=== PATIENT | female | born 1985 | race Two or more races ===

== ENCOUNTER 2024-05-19 23:44 | Emergency (ER) | payer OTHER, MEDICAID, SELFPAY ==
[2024-05-19 23:45] VITALS: BMI 39.6
[2024-05-20 00:38] VITALS: BP 108/74; PULSE 98; RESP 20; TEMP 37.2; O2SAT 98
[2024-05-20] MEDS: ONDANSETRON ODT 4 MG TABRAP PO (00:59)
--- NOTE | 2024-05-20 01:09 | EDNOTE_ITS ---
Nausea/Vomit./Diarrhea-RME/HPI General Chief complaint: Abdominal Pain Stated complaint: ABD PAIN Time Seen by Provider: 05/20/24 00:48 Arrival date/time: 05/19/24 23:44 39F with history of cholecystectomy presents to ED with 1 day of N/V, gen ab pain/cramping, and non-bloody diarrhea. Patient was at [facility] earlier today but eloped because it was taking too long. Limitations: no limitations Related Data Previous Rx's ?Medication ?Instructions ?Recorded ondansetron 4 mg disintegrating 4 mg PO Q8H PRN nausea and 05/20/24 tablet vomiting #30 tabs Allergies Allergy/AdvReac Type Severity Reaction Status Date / Time aspirin Allergy Verified 05/19/24 23:47 Penicillins Allergy Verified 05/19/24 23:48 Review of Systems Review of Systems Systems Reviewed: All systems reviewed, normal except as documented Constitutional Constitutional: Reports system reviewed and no additional complaints, except as documented, Denies fever(s) and Denies headache(s) ENT Ears, Nose, Mouth, and Throat: Denies disequilibrium and Denies headache(s) Cardiovascular Cardiovascular: Reports system reviewed and no additional complaints, except as documented, Denies chest pain and Denies dyspnea Respiratory Respiratory: Reports system reviewed and no additional complaints, except as documented, Denies cough and Denies dyspnea Gastrointestinal Gastrointestinal: Reports system reviewed and no additional complaints, except as documented, Reports as per HPI, Reports abdominal pain, Reports diarrhea, Reports nausea and Reports vomiting Neurologic Neurologic: Reports system reviewed and no additional complaints, except as d ocumented, Denies confusion, Denies disequilibrium and Denies headache(s) Psychiatric Psychiatric: Denies confusion Past Medical History Social History SMOKING STATUS: Never smoker ED Exam General Limitations: Present no limitations General appearance: Present alert and in no apparent distress Head Head exam: Present atraumatic Eye Eye exam: Present normal appearance, PERRL and EOMI ENT ENT exam: Present normal exam, normal oropharynx and mucous membranes moist Neck Neck exam: Present normal inspection, full ROM and trachea midline Chest Chest inspection: Present normal inspection and symmetric chest wall rise Respiratory Respiratory exam: Present normal lung sounds bilaterally Cardiovascular Cardiovascular exam: Present regular rate, normal rhythm and normal heart sounds Abdominal Exam Abdominal exam: Present soft, tenderness and normal bowel sounds Abdominal tenderness: Present mild Extremities Exam Extremities exam: Present normal inspection and full ROM Back Exam Back exam: Present normal inspection and full ROM Neurological Exam Neurological exam: Present alert, oriented X3 and CN II-XII intact Psychiatric Psychiatric exam: Present normal affect and normal mood Skin Skin exam: Present warm, dry, intact and normal color Course Quality Measures none Orders Category Date Time Status Acetaminophen Tab [Tylenol ES Tab] Med 05/20/24 01:07 Discontinued 1,000 mg PO X1 ONE Dicyclomine [Bentyl] Med 05/20/24 01:07 Discontinued 10 mg PO X1 ONE Ondansetron Odt [Zofran Odt] Med 05/20/24 00:48 Discontinued 4 mg PO X1 ONE mg Hyd/Al Hyd/Sandi Susp [Maalox Susp] Med 05/20/24 01:07 Discontinued 30 ml PO X1 ONE Vital Signs Vital signs: Vital Signs Temperature 99.0 F 05/20/24 00:38 Pulse Rate 98 05/20/24 00:38 Respiratory Rate 20 05/20/24 00:38 Blood Pressure 108/74 05/20/24 00:38 Pulse Oximetry (%) 98 05/20/24 00:38 Oxygen Delivery Method Room Air 05/20/24 00:38 O2 at 98% on RA and WNLs Nausea/Vomiting/Diarrhea MDM Narrative MDM Narrative:: 39F with history of cholecystectomy presents to ED with 1 day of N/V, gen ab pain/cramping, and non-bloody diarrhea. Patient was at [facility] earlier today but eloped because it was taking too long. Physical exam reveals mild gen ab tenderness. Patient is afebrile, calm, and alert. [facility] results reveals minimal leukocytosis, likely reactive from N/V. CMP unremarkable. Lipase normal. HCG neg. Likely viral gastroenteritis. PO challenged passed. Patient felt better after GI cocktail. Refrigeration Service Technician given. Patient data External records reviewed:: Other (specify) ([place] results) Clinical information provided by:: patient Social determinants that could affect healthcare access:: none Patient has the following chronic illnesses:: none How is presenting disease/condition affected by chronic disease/condition?: no chronic disease Evaluation data The following diagnostics were reviewed and interpreted by me:: other (specify) (none) Lab and/or radiology exams considered but not ordered:: not ordered Interpretation Summary: n/a Medications / Prescriptions Medications / Prescriptions considered but not ordered:: ordered Medication administrations:: Medication Administration History Discontinued Medications Acetaminophen (Acetaminophen 500 Mg Tablet) 1,000 mg PO X1 ONE Stop: 05/20/24 01:08 Last Admin: 05/20/24 01:41 Dose: 1,000 mg Documented By: AMIRA Al Hydrox/Mg Hydrox/Simethicone (Mg Hyd/Al Hyd/Sandi (Maalox Reg) Susp 30 Ml Udc) 30 ml PO X1 ONE Stop: 05/20/24 01:08 Last Admin: 05/20/24 01:41 Dose: 30 ml Documented By: AMIRA Dicyclomine HCl (Dicyclomine 10 Mg Capsule) 10 mg PO X1 ONE Stop: 05/20/24 01:08 Last Admin: 05/20/24 01:41 Dose: 10 mg Documented By: AMIRA Ondansetron HCl (Ondansetron Odt 4 Mg Tabrap) 4 mg PO X1 ONE; Protocol Stop: 05/20/24 00:49 Last Admin: 05/20/24 00:59 Dose: 4 mg Documented By: DB above Consultations Consultation(s) initiated? (list below): No Diagnosis Nausea Differential Diagnosis: traveler's diarrhea, food poisoning, gastroenteritis, clostridium difficile infection, drug-induced nausea and vomiting and dehydration Most likely diagnosis given after review of the tests above:: gastroenteritis Admission Indicated Admission indicated?: not indicated Admission Request Was there a request for admission?: No Disposition Plan Disposition Plan: Discharge Discharge Attestation Discharge Attestation: The patient and all family members were given an opportunity to ask questions and understood the discharge instructions. Discharge instructions specifically effects, indications for sooner follow up or return to the emergency department, and the expected course of current diagnosis. Patient condition: Stable Discharge Plan Plan Patient Disposition: HOME (Self Care) Disposition Comment: STable Prescriptions/Referrals Prescriptions/Med Rec: New ondansetron 4 mg tablet,disintegrating 4 mg PO Q8H PRN (Reason: nausea and vomiting) Qty: 30 0RF Referrals: No Primary/Family,Physician [Primary Care Provider] - In 1 week Problem List Clinical Impression: Gastroenteritis Patient/Caregiver Discharge Instructions Education Materials: ED Diarrhea, Viral (Adult) Additional Instructions: Please follow-up with PCP within 24-48 hours and return immediately if symptoms worsen. Stay hydrated. Print Language: Jamaican Stand Alone Forms: Patient Portal Info Letter MARISABEL/SUKHDEV Supervising Physician MARISABEL/CAR PUSHER Supervising Physician: Dr. Rausch
[2024-05-20] MEDS: MG HYD/AL HYD/SIME (Maalox Reg) SUSP 30 ML UDC PO (01:41)
[2024-05-20] MEDS: ACETAMINOPHEN 500 MG TABLET 1000 MG PO (01:41)
[2024-05-20] MEDS: DICYCLOMINE 10 MG CAPSULE PO (01:41)
== END 2024-05-20 06:34 | disposition home or self-care (01) ==
PROVIDERS: Emergency Provider Emergency Medicine
DX: K52.9 Noninfective gastroenteritis and colitis, unspecified (principal)
CPT/HCPCS: 99282; Q0162; A9270

== ENCOUNTER 2024-08-28 15:11 | Emergency (ER) | payer MEDICAID, SELFPAY ==
[2024-08-28 15:30] VITALS: BP 119/76; PULSE 74; RESP 18; TEMP 37.2; O2SAT 99; BMI 40.6
--- NOTE | 2024-08-28 15:38 | XR_ITS ---
Examination: Complete OB ultrasound, less than 14 weeks, transabdominal Date and time of exam: August 28, 2024 1549 hours INDICATIONS: Vaginal bleeding and right lower abdominal pain beginning 4 days ago Technique: Obstetrical ultrasound images less than 14 weeks performed via transabdominal imaging Findings: Uterus 10.0 cm endometrial stripe 0.5 cm heterogeneous with free fluid No intrauterine gestation Right ovary 3.0 cm arterial flow 14 mm follicular cyst Left ovary 3.4 cm arterial flow 10 mm follicular cyst IMPRESSION: As clinically warranted, recommend transvaginal pelvic sonography follow-up to exclude retained products of conception
--- NOTE | 2024-08-28 15:38 | PD.EDRME ---
Rapid Medical Screening Exam E Arrival date/time: 08/28/24 15:11 39-year-old female presents emergency department with complaints of vaginal bleeding and right lower quadrant abdominal pain. Reports most likely is having a miscarriage. Chief Complaint: Vaginal Bleeding Time Seen by Provider: 08/28/24 15:20 Vital signs: Vital Signs Temperature 98.9 F 08/28/24 15:30 Pulse Rate 74 08/28/24 15:30 Respiratory Rate 18 08/28/24 15:30 Blood Pressure 119/76 08/28/24 15:30 Pulse Oximetry (%) 99 08/28/24 15:30 Oxygen Delivery Method Room Air 08/28/24 15:30
[2024-08-28 15:58] LABS: Basophils # (Auto) 0.1 Thou/mm3 (0.0-0.2); Basophils % (Auto) 1 % (0-2.5); Eosinophils # (Auto) 0.3 Thou/mm3 (0.0-0.5); Eosinophils % (Auto) 3 % (0-10); Hematocrit 36.2 % (36.0-46.0); Hemoglobin 12.5 g/dL (12.0-16.0); Immature Granulocytes % (Auto) 0 % (0-0); Immature Granulocytes Auto 0.02 Thou/mm3 (0.00-0.00); Lymphocytes % (Auto) 40 % (10-50); Mean Corpuscular HGB Conc 34.5 g/dl (31.0-37.0); Mean Corpuscular Hemoglobin 29.4 pg (25.0-35.0); Mean Corpuscular Volume 85 fL (80-100); Monocytes # (Auto) 0.7 Thou/mm3 (0.0-0.8); Monocytes % (Auto) 6 % (0-12); Neutrophils # (Auto) 5.1 Thou/mm3 (1.8-7.7); Neutrophils % (Auto) 50 % (37-80); Nucleated Red Blood Cell % 0 /100 WBC (0); Platelet Count 411 Thou/mm3 (140-440); RDW Standard Deviation 37.3 fL (36.4-46.3); Red Blood Count 4.25 Miln/mm3 (4.00-5.20); White Blood Count 10.2 Thou/mm3 (3.6-11.0)
[2024-08-28 16:17] LABS: Alanine Aminotransferase 12 U/L (10-49); Albumin, Serum 4.1 gm/dL (3.5-5.0); Albumin/Globulin Ratio 1.5 (1.2-2.2); Alkaline Phosphatase 80 U/L (46-116); Anion Gap 6 (7-16); Aspartate Amino Transferase 16 U/L (0-34); BUN/Creatinine Ratio 14 Ratio (12-20); Beta HCG,Quantitative < 1 mIU/mL (<5.0); Bilirubin,Total 0.2 mg/dL (0.3-1.2); Blood Urea Nitrogen 10 mg/dL (9-23); Calcium 9.2 mg/dL (8.3-10.6); Calcium (Corrected) 9.2 mg/dL (8.5-10.1); Carbon Dioxide 25.1 mMol/L (20.0-31.0); Chloride 108 mMol/L (98-107); Creatinine (Component) 0.7 mg/dL (0.6-1.3); Estimated Creatinine Clearance 111.9 mL/min (>60); Globulin 2.8 gm/dL (2.3-3.5); Glucose 97 mg/dL (74-106); Osmolality,Calculated 276 (275-295); Potassium 3.9 mMol/L (3.4-5.1); Sodium 139 mMol/L (136-145); Total Protein 6.9 gm/dL (5.7-8.2); eGFR > 60 See Note
[2024-08-28 17:08] LABS: Collection Type, Urine Clean Catch
[2024-08-28 17:14] LABS: Bilirubin,Urine Negative (Negative); Blood,Urine 1+ (Negative); Clarity,Urine Clear (Clear/Hazy); Color,Urine Lt-Yellow (Lt Yel-Yel); Glucose, Urine Negative (Negative); Ketones,Urine Negative (Negative); Leukocyte Esterase,Urine Negative (Negative); Nitrite,Urine Negative (Negative); Protein,Urine Negative (Neg - Trace); RBC,Urine 4 /hpf (0-3); Specific Gravity,Urine 1.026 (1.001-1.035); Squamous Epithelial Cell,Urine 3 /hpf (0-5); Urobilinogen,Urine Negative mg/dL (0.0-1.0); WBC,Urine < 1 /hpf (0-5)
--- NOTE | 2024-08-28 19:01 | EDNOTE_ITS ---
ED OB Contraction Preg RMI/HPI General Chief complaint: Vaginal Bleeding Stated complaint: VAGINAL BLEED WITH PELVIC PAIN; POSSIBLE MISCARRY Time Seen by Provider: 08/28/24 15:20 Arrival date/time: 08/28/24 15:11 RME / HPI RME / HPI Narrative: 39-year-old female presents emergency department with complaints of vaginal bleeding and right lower quadrant abdominal pain. Reports most likely is having a miscarriage. Patient is 2 para 2 0, last menstruation a month ago. Denies any other complaints. Related Data Previous Rx's ?Medication ?Instructions ?Recorded ondansetron 4 mg disintegrating 4 mg PO Q8H PRN nausea and 05/20/24 tablet vomiting #30 tabs Allergies Allergy/AdvReac Type Severity Reaction Status Date / Time ibuprofen Allergy Intermediate SWELLING Verified 08/28/24 15:15 FACE aspirin Allergy Verified 08/28/24 15:15 Penicillins Allergy Verified 08/28/24 15:15 Review of Systems Review of Systems Narrative Review of Systems: Review of system reviewed and within normal limits except mentioned in HPI ED Exam Narrative Physical exam: VITAL SIGNS: Reviewed. GENERAL APPEARANCE: Alert and interactive, follows commands, no acute distress, HEAD AND FACE: Non-traumatic. ENT: PERRL, pink conjunctivitis, eyelid no trauma, Mucous membrane moist. NECK: Supple, nontender, no nuchal rigidity. CHEST: No tenderness, no crepitus, no paradoxical movement, no retractions. LUNGS: Clear, well ventilated, symmetric, no rales, no wheezing, no ronchi, no stridor, good breath sounds bilaterally. HEART: Regular rate, regular rhythm, no murmur, no gallops. ABDOMEN: Soft, positive bowel sounds, nondistended, no guarding, nontender, no rebound, no masses, RECTAL: Deferred. GENITAL: Deferred. NEUROLOGICAL: Gross motor function intact sensory function intact, Appropriate for age. MUSCULOSKELETAL: low back nontender, full range of motion. EXTREMITIES: Nontender, full range of motion. SKIN: Color pink, dry, no rash, no lacerations, no abrasions, no contusions. LYMPHATICS: Deferred. Course Quality Measures none Orders Category Date Time Status US OB <= 14 weeks fetus Stat Exams 08/28/24 15:38 Completed ABO/RH Type Stat Lab 08/28/24 15:46 Completed Beta HCG,Quantitative Stat Lab 08/28/24 15:46 Completed CBC Stat Lab 08/28/24 15:46 Completed Comprehensive Metabolic Panel Stat Lab 08/28/24 15:46 Completed Urinalysis Stat Lab 08/28/24 16:59 Completed Urine Culture Stat Lab 08/28/24 16:59 Received Vital Signs Vital signs: Vital Signs Temperature 98.9 F 08/28/24 15:30 Pulse Rate 74 08/28/24 15:30 Respiratory Rate 18 08/28/24 15:30 Blood Pressure 119/76 08/28/24 15:30 Pulse Oximetry (%) 99 08/28/24 15:30 Oxygen Delivery Method Room Air 08/28/24 15:30 Vaginal Bleeding MDM Narrative MDM Narrative: 39-year-old female presents emergency department with complaints of vaginal bleeding and right lower quadrant abdominal pain. Reports most likely is having a miscarriage. Patient is 2 para 2 0, last menstruation a month ago. Denies any other complaints. test is negative. CBC showed no anemia. Urinalysis no UTI. Ultrasound of the /pelvic, came back unremarkable no intrauterine gestation noted. No abnormality noted. Results discussed with the patient. Patient data External records reviewed:: None Clinical information provided by:: patient Social determinants that could affect healthcare access:: none Patient has the following chronic illnesses:: None How is presenting disease/condition affected by chronic disease/condition?: no chronic disease Evaluation data The following diagnostics were reviewed and interpreted by me:: lab results and radiology exam(s) Lab and/or radiology exams considered but not ordered:: None Interpretation Summary: See results in MDM Medications / Prescriptions Medications or Prescriptions considered but not ordered:: None none Medication administrations:: None Consultations Consultation(s) initiated? (list below): No Diagnosis Vaginal Bleeding Differential Diagnosis: missed , threatened , dysfunctional uterine bleeding and vaginal bleeding Most likely diagnosis given after review of the tests above:: Vaginal bleeding Admission Indicated Admission indicated?: not indicated Admission Request Was there a request for admission?: No Disposition Plan Disposition Plan: Discharge Discharge Attestation Discharge Attestation: The patient was given an opportunity to ask questions and understood the discharge instructions. Discharge instructions specifically effects, indications for sooner follow up or return to the emergency department, and the expected course of current diagnosis. Patient condition: Stable Discharge Plan Plan Patient Disposition: HOME (Self Care) Disposition Comment: stable Prescriptions/Referrals Prescriptions/Med Rec: No Action ondansetron 4 mg tablet,disintegrating 4 mg PO Q8H PRN (Reason: nausea and vomiting) Qty: 30 0RF Referrals: Jeison Simon MD [Primary Care Provider] - In 1 week Problem List Clinical Impression: Vaginal bleeding Patient/Caregiver Discharge Instructions Discharge Activity: activity as tolerated Education Materials: Understanding Uterine Bleeding Additional Instructions: Thank you for the opportunity for serving you today. You are stable for disc harged . You are advised to: Follow-up with your PCP in 1 to 2 days Return to ED for worsening of symptoms Increase oral fluids Print Language: Icelandic Stand Alone Forms: [facility] Award Info., Patient Portal Info Letter PA/DIRECTOR OF SOLUTIONS ARCHITECTURE Supervising Physician PA/DIRECTOR OF SOLUTIONS ARCHITECTURE Supervising Physician: MD Lindsey
== END 2024-08-28 19:17 | disposition home or self-care (01) ==
PROVIDERS: Nurse Practitioner Primary Care; Emergency Provider Emergency Medicine; PCP Family Medicine
DX: N93.9 Abnormal uterine and vaginal bleeding, unspecified (principal)
CPT/HCPCS: 36415; 76801; 80053; 81001; 84702; 85025; 86900; 86901; 87086; 99284

== ENCOUNTER 2025-01-15 20:15 | Emergency (ER) | payer MEDICAID, SELFPAY ==
[2025-01-15 20:17] VITALS: BMI 30.5
[2025-01-15 20:37] VITALS: BP 113/80; PULSE 76; RESP 22; TEMP 37; O2SAT 99
--- NOTE | 2025-01-15 20:47 | XR_ITS ---
Examination: CT brain head without contrast. 2-D sagittal coronal reconstructions Date and time of exam:January 15, 2025, 2126 hours. INDICATIONS: Severe headache with bilateral hand numbness onset today. CTDI: vol (mGy):47 DLP: (mGycm): 937. Technique: Multiple CT axial sections of the brain have been obtained, 5 mm slice thickness. Contrast has not been administered. 2-D sagittal, coronal reconstructions have been obtained Low dose protocols were performed. One or more of the following dose reduction techniques were used; automated exposure control, adjustment of the mA and/or KV according to patient size, use of iterative reconstruction technique. Findings: No significant ventricular enlargement. Intra-axial or extra-axial hemorrhage density is not seen. No mass effect or midline shift Basal cisterns are not remarkable. Fourth ventricle is midline. Cranial vault intact. Impression: Negative for acute hemorrhage, mass effect or midline shift Advise clinical correlation and follow up accordingly
--- NOTE | 2025-01-15 20:53 | EDNOTE_ITS ---
ED Headache RME/HPI General Chief Complaint: Headache Stated Complaint: HEADACHE, NUMBNESS TO BOTH HANDS Time Seen by Provider: 01/15/25 20:46 Arrival date/time: 01/15/25 20:15 39F with history of migraines presents to ED with 3 days of worsening GORMAN, light sensitivity, generalized numbness/burning sensation of skin, and N/V. Patient took Imitrex w/o relief. Patient denies URI symptoms and fevers/chills. Limitations: no limitations Related Data Previous Rx's ?Medication ?Instructions ?Recorded ondansetron 4 mg disintegrating 4 mg PO Q8H PRN nausea and 05/20/24 tablet vomiting #30 tabs metoclopramide HCl 5 mg tablet 5 mg PO BID PRN nausea and 01/15/25 (Reglan) vomiting #14 tabs Allergies Allergy/AdvReac Type Severity Reaction Status Date / Time ibuprofen Allergy Intermediate SWELLING Verified 01/15/25 20:24 FACE aspirin Allergy Verified 01/15/25 20:24 Penicillins Allergy Verified 01/15/25 20:24 Review of Systems Review of Systems Systems Reviewed: All systems reviewed, normal except as documented Constitutional Constitutional: Reports system reviewed and no additional complaints, except as documented, Reports as per HPI, Denies fever(s) and Reports headache(s) ENT Ears, Nose, Mouth, and Throat: Reports as per HPI, Denies disequilibrium, Reports headache(s) and Reports vertigo Cardiovascular Cardiovascular: Reports system reviewed and no additional complaints, except as documented, Denies chest pain and Denies dyspnea Respiratory Respiratory: Reports system reviewed and no additional complaints, except as documented, Denies cough and Denies dyspnea Gastrointestinal Gastrointestinal: Reports system reviewed and no additional complaints, except as documented, Reports as per HPI, Denies abdominal pain, Reports nausea and Reports vomiting Musculoskeletal Musculoskeletal: Reports numbness and Reports tingling (burning) Integumentary/Breasts Skin/Breast: Reports as per HPI Neurologic Neurologic: Reports system reviewed and no additional complaints, except as documented, Reports as per HPI, Denies confusion, Denies disequilibrium, Reports headache(s), Reports numbness, Reports tingling (burning) and Reports vertigo Psychiatric Psychiatric: Denies confusion Past Medical History Social History SMOKING STATUS: Never smoker ED Exam General Limitations: Present no limitations General appearance: Present alert and in distress Head Head exam: Present atraumatic Eye Eye exam: Present normal appearance, PERRL and EOMI ENT ENT exam: Present normal exam, normal oropharynx and mucous membranes moist Neck Neck exam: Present normal inspection, full ROM and trachea midline Chest Chest inspection: Present normal inspection and symmetric chest wall rise Respiratory Respiratory exam: Present normal lung sounds bilaterally Cardiovascular Cardiovascular exam: Present regular rate, normal rhythm and normal heart sounds Abdominal Exam Abdominal exam: Present soft and normal bowel sounds Extremities Exam Extremities exam: Present normal inspection and full ROM Back Exam Back exam: Present normal inspection and full ROM Neurological Exam Neurological exam: Present alert, oriented X3 and CN II-XII intact Psychiatric Psychiatric exam: Present normal affect and normal mood Skin Skin exam: Present warm, dry, intact and normal color Course Quality Measures none Orders Category Date Time Status Insert IV NOW Care 01/15/25 20:[address] head/brain wo con Stat Exams 01/15/25 20:47 Completed Alcohol, Blood Medical Stat Lab 01/15/25 21:00 Completed CBC Stat Lab 01/15/25 21:00 Completed CMP [Comprehensive Metabolic Panel] Stat Lab 01/15/25 21:00 Completed Drug Screen,Urine Stat Lab 01/15/25 22:26 Received HCG Qualitative,Urine Stat Lab 01/15/25 22:26 Received Mag [Magnesium] Stat Lab 01/15/25 21:00 Completed DiphenhydrAMINE INJ [Benadryl Inj] Med 01/15/25 20:47 Discontinued 12.5 mg IVP X1 ONE Metoclopramide Inj [Reglan Inj] Med 01/15/25 20:47 Discontinued 10 mg IVP X1 ONE Ringers Lactated 1000 ml [Lactated Ringers] 1,000 ml Med 01/15/25 20:47 Discontinued IV 999 mls/hr Vital Signs Vital signs: Vital Signs Temperature 98.6 F 01/15/25 20:37 Pulse Rate 76 01/15/25 20:37 Respiratory Rate 22 H 01/15/25 20:37 Blood Pressure 113/80 01/15/25 20:37 Pulse Oximetry (%) 99 01/15/25 20:37 Oxygen Delivery Method Room Air 01/15/25 20:37 O2 at 99% on RA and WNLs Headache MDM Narrative MDM Narrative:: 39F with history of migraines presents to ED with 3 days of worsening GORMAN, light sensitivity, generalized numbness/burning sensation of skin, and N/V. Patient took Imitrex w/o relief. Patient denies URI symptoms and fevers/chills. Physical exam reveals normal pupil response and EOM. CN II-XII grossly intact. Patient is afebrile, alert, but appears to be in pain. CT unremarkable. No leukocytosis. CMP minimally low K and bicarb, but LR should have enough to replete. Mag normal. Patient unable to give urine sample. Ramos hyacinth, meds improved symptoms. Patient data External records reviewed:: [facility] previous records Clinical information provided by:: patient Social determinants that could affect healthcare access:: none Patient has the following chronic illnesses:: migraines How is presenting disease/condition affected by chronic disease/condition?: exacerbated by Evaluation data The following diagnostics were reviewed and interpreted by me:: lab results and radiology exam(s) Lab and/or radiology exams considered but not ordered:: ordered Interpretation Summary: above Medications / Prescriptions Medications or Prescriptions considered but not ordered:: ordered Medication administrations:: Medication Administration History Discontinued Medications Diphenhydramine HCl (Diphenhydramine Inj 50 Mg/Ml Vial) 12.5 mg IVP X1 ONE Stop: 01/15/25 20:48 Last Admin: 01/15/25 21:06 Dose: 12.5 mg Documented By: FABIÁN Lactated Ringer's (Lactated Ringers) 1,000 mls @ 999 mls/hr IV .Q1H1M ONE Stop: 01/15/25 21:47 Last Infusion: 01/15/25 22:24 Dose: Infused Documented By: Admin: 01/15/25 21:11 Dose: 999 mls/hr Documented By: FABIÁN Metoclopramide HCl (Metoclopramide Inj 5 Mg/Ml Vial 2 Ml) 10 mg IVP X1 ONE; Protocol Stop: 01/15/25 20:48 Last Admin: 01/15/25 21:03 Dose: 10 mg Documented By: FABIÁN above Consultations Consultation(s) initiated? (list below): No Diagnosis Differential diagnosis headache: migraine, tension headache, subarachnoid hemorrhage, headache, meningitis, sinusitis and postconcussion syndrome Most likely diagnosis given after review of the tests above:: migraine Admission Indicated Admission indicated?: not indicated Admission Request Was there a request for admission?: No Disposition Plan Disposition Plan: Discharge Discharge Attestation Discharge Attestation: The patient and all family members were given an opportunity to ask questions and understood the discharge instructions. Discharge instructions specifically effects, indications for sooner follow up or return to the emergency department, and the expected course of current diagnosis. Patient condition: Stable Discharge Plan Plan Patient Disposition: HOME (Self Care) Discharge Disposition comment: Stable Prescriptions/Referrals Prescriptions/Med Rec: New metoclopramide HCl [Reglan] 5 mg tablet 5 mg PO BID PRN (Reason: nausea and vomiting) Qty: 14 0RF No Action ondansetron 4 mg tablet,disintegrating 4 mg PO Q8H PRN (Reason: nausea and vomiting) Qty: 30 0RF Referrals: No Primary/Family,Physician [Primary Care Provider] - In 1 week Problem List Clinical Impression: Migraine Patient/Caregiver Discharge Instructions Education Materials: ED Headache, Migraine, Classic Additional Instructions: Please follow-up with PCP within 24-48 hours and return immediately if symptoms worsen. Print Language: Algerian Stand Alone Forms: Patient Portal Info Letter MARISABEL/SUKHDEV Supervising Physician MARISABEL/SUKHDEV Supervising Physician: Dr. Maharaj
[2025-01-15] MEDS: METOCLOPRAMIDE INJ 5 MG/ML VIAL 2 ML 10 MG IVP (21:03)
[2025-01-15] MEDS: RINGERS LACTATED 1000 ML 1,000 ML 999 ML IV (21:11)
[2025-01-15 21:42] LABS: Basophils # (Auto) 0.0 Thou/mm3 (0.0-0.2); Basophils % (Auto) 0 % (0-2.5); Eosinophils # (Auto) 0.3 Thou/mm3 (0.0-0.5); Eosinophils % (Auto) 3 % (0-10); Hematocrit 37.9 % (36.0-46.0); Hemoglobin 13.3 g/dL (12.0-16.0); Immature Granulocytes Auto 0.02 Thou/mm3 (0.00-0.00); Lymphocytes # (Auto) 4.0 Thou/mm3 (1.0-4.8); Lymphocytes % (Auto) 40 % (10-50); Mean Corpuscular HGB Conc 35.1 g/dl (31.0-37.0); Mean Corpuscular Hemoglobin 29.6 pg (25.0-35.0); Mean Corpuscular Volume 84 fL (80-100); Monocytes # (Auto) 0.6 Thou/mm3 (0.0-0.8); Monocytes % (Auto) 6 % (0-12); Neutrophils # (Auto) 5.0 Thou/mm3 (1.8-7.7); Neutrophils % (Auto) 50 % (37-80); Nucleated Red Blood Cell # 0.00 Thou/mm3 (0.00-0.00); Nucleated Red Blood Cell % 0 /100 WBC (0); Platelet Count 396 Thou/mm3 (140-440); RDW Standard Deviation 36.8 fL (36.4-46.3); Red Blood Count 4.50 Miln/mm3 (4.00-5.20); White Blood Count 9.9 Thou/mm3 (3.6-11.0)
[2025-01-15 22:24] LABS: Alanine Aminotransferase 18 U/L (10-49); Albumin, Serum 4.4 gm/dL (3.5-5.0); Albumin/Globulin Ratio 1.8 (1.2-2.2); Alcohol, Blood Medical < 3.0 mg/dL (0-10.0); Alkaline Phosphatase 74 U/L (46-116); Anion Gap 10 (7-16); Aspartate Amino Transferase 22 U/L (0-34); BUN/Creatinine Ratio 11 Ratio (12-20); Bilirubin,Total 0.3 mg/dL (0.3-1.2); Blood Urea Nitrogen 8 mg/dL (9-23); Calcium 9.3 mg/dL (8.3-10.6); Calcium (Corrected) 9.3 mg/dL (8.5-10.1); Carbon Dioxide 19.8 mMol/L (20.0-31.0); Chloride 108 mMol/L (98-107); Creatinine (Component) 0.7 mg/dL (0.6-1.3); Estimated Creatinine Clearance 112.0 mL/min (>60); Globulin 2.4 gm/dL (2.3-3.5); Glucose 83 mg/dL (74-106); Magnesium 2.0 mg/dL (1.6-2.6); Osmolality,Calculated 272 (275-295); Potassium 3.3 mMol/L (3.4-5.1); Sodium 138 mMol/L (136-145); Total Protein 6.8 gm/dL (5.7-8.2); eGFR > 60 See Note
[2025-01-15 22:35] LABS: HCG Qualitative,Urine Negative
[2025-01-15 22:46] LABS: Amphetamine/Methamp Scrn,U Negative (Negative); Barbiturate Screen,Urine Negative (Negative); Benzodiazepines Screen,Urine Negative (Negative); Benzoylecgonine Screen, Ur Negative (Negative); Fentanyl Screen,Urine Negative (Negative); Opiate Screen,Urine Negative (Negative); THC Screen,Urine Negative (Negative)
== END 2025-01-15 23:33 | disposition home or self-care (01) ==
PROVIDERS: Physician Assistant; Emergency Provider Emergency Medicine
DX: G43.909 Migraine, unspecified, not intractable, without status migrainosus (principal); Z88.6 Allergy status to analgesic agent; Z88.0 Allergy status to penicillin
CPT/HCPCS: 36415; 70450; 80053; 80307; 80320; 81025; 83735; 85025; 96361; 96374; 96375; 99283; J1200; J2765; J7120; G0480

== ENCOUNTER 2025-05-21 17:24 | Emergency (ER) | payer MEDICAID, SELFPAY ==
[2025-05-21 17:25] VITALS: BP 116/79; PULSE 83; RESP 18; TEMP 36.3; O2SAT 100; BMI 30.2
--- NOTE | 2025-05-21 17:35 | EKG_ITS ---
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
--- NOTE | 2025-05-21 17:35 | XR_ITS ---
EXAMINATION: AP chest single view TECHNIQUE: AP portable upright chest single view Date and time: May 21, 2025, 1749 hours INDICATIONS: Weakness chest tightness today. FINDINGS: Normal heart size No lobar pneumonia or pulmonary edema. Intact osseous structures IMPRESSION: No lobar pneumonia or pulmonary edema
--- NOTE | 2025-05-21 17:36 | PD.EDWEAK ---
ED Weakness RME/HPI General Chief complaint: Weakness Stated complaint: WEAKNESS Time Seen by Provider: 05/21/25 17:26 Arrival date/time: 05/21/25 17:24 40-year-old female patient came in for evaluation regarding sudden onset of generalized body weakness. Patient told me that incident happened 4 at least 2 to 3 hours as sudden onset of generalized body weakness, chest tightness, severity moderate. Patient denies any chest pain denies any cough denies any fever denies any other complaints except for low back pain has been ongoing for several weeks. Denies any trauma or fall patient is ambulatory. Denies any weakness to the lower extremity denies any saddle anesthesia denies any bladder incontinence denies any bowel incontinence. Related Data Previous Rx's ?Medication ?Instructions ?Recorded ondansetron 4 mg disintegrating 4 mg PO Q8H PRN nausea and 05/20/24 tablet vomiting #30 tabs metoclopramide HCl 5 mg tablet 5 mg PO BID PRN nausea and 01/15/25 (Reglan) vomiting #14 tabs Allergies Allergy/AdvReac Type Severity Reaction Status Date / Time ibuprofen Allergy Intermediate SWELLING Verified 05/21/25 17:33 FACE aspirin Allergy Verified 05/21/25 17:33 Penicillins Allergy Verified 05/21/25 17:33 Review of Systems Review of Systems Narrative Review of Systems: Review of system reviewed and within normal limits except mentioned in HPI ED Exam Narrative Physical exam: VITAL SIGNS: Reviewed. GENERAL APPEARANCE: Alert and interactive, follows commands, no acute distress, HEAD AND FACE: Non-traumatic. ENT: PERRL, pink conjunctivitis, eyelid no trauma, Mucous membrane moist. NECK: Supple, nontender, no nuchal rigidity. CHEST: No tenderness, no crepitus, no paradoxical movement, no retractions. LUNGS: Clear, well ventilated, symmetric, no rales, no wheezing, no ronchi, no stridor, good breath sounds bilaterally. HEART: Regular rate, regular rhythm, no murmur, no gallops. ABDOMEN: Soft, positive bowel sounds, nondistended, no guarding, nontender, no rebound, no masses, RECTAL: Deferred. GENITAL: Deferred. NEUROLOGICAL: Gross motor function intact sensory function intact, Appropriate for age. MUSCULOSKELETAL: low back nontender, full range of motion. EXTREMITIES: Nontender, full range of motion. SKIN: Color pink, dry, no rash, no lacerations, no abrasions, no contusions. LYMPHATICS: Deferred. Course Quality Measures none Orders Category Date Time Status EKG (ED ONLY) *Do not use* NOW Care 05/21/25 17:35 Completed EKG (ED Only) Stat Exams 05/21/25 17:35 Draft XR chest 1V Stat Exams 05/21/25 17:35 Completed CBC Stat Lab 05/21/25 18:33 Completed Comprehensive Metabolic Panel Stat Lab 05/21/25 18:33 Completed Prothrombin Time with INR Stat Lab 05/21/25 18:33 Completed Troponin I Stat Lab 05/21/25 18:33 Completed Urinalysis Stat Lab 05/21/25 19:09 Completed Vital Signs Vital signs: Vital Signs Temperature 97.4 F 05/21/25 17:25 Pulse Rate 83 05/21/25 17:25 Respiratory Rate 18 05/21/25 17:25 Blood Pressure 116/79 05/21/25 17:25 Pulse Oximetry (%) 100 05/21/25 17:25 Oxygen Delivery Method Room Air 05/21/25 17:25 Weakness MDM Narrative MDM Narrative:: 40-year-old female patient came in for evaluation regarding sudden onset of generalized body weakness. Patient told me that incident happened 4 at least 2 to 3 hours as sudden onset of generalized body weakness, chest tightness, severity moderate. Patient denies any chest pain denies any cough denies any fever denies any other complaints except for low back pain has been ongoing for several weeks. Denies any trauma or fall patient is ambulatory. Denies any weakness to the lower extremity denies any saddle anesthesia denies any bladder incontinence denies any bowel incontinence. Patient workup all came back unremarkable. Including chest x-ray which came back unremarkable. EKG showed normal sinus rhythm, ventricular rate of 74 bpm, no ST segment elevation depression noted. Prior to discharge patient told me that she is okay and she wants to go home Patient data External records reviewed:: None Clinical information provided by:: patient Social determinants that could affect healthcare access:: none Patient has the following chronic illnesses:: None How is presenting disease/condition affected by chronic disease/condition?: no chronic disease Evaluation data The following diagnostics were reviewed and interpreted by me:: lab results, radiology exam(s) and EKG tracing(s) Lab and/or radiology exams considered but not ordered:: None Interpretation Summary: None see above Medications / Prescriptions Medications or Prescriptions considered but not ordered:: None Medication administrations:: None Consultations Consultation(s) initiated? (list below): No Diagnosis Weakness Differential Diagnosis: anemia and dehydration Most likely diagnosis given after review of the tests above:: Generalized weakness Admission Indicated Admission indicated?: not indicated Admission Request Was there a request for admission?: No Disposition Plan Disposition Plan: Discharge Discharge Attestation Discharge Attestation: The patient and all family members were given an opportunity to ask questions and understood the discharge instructions. Discharge instructions specifically effects, indications for sooner follow up or return to the emergency department, and the expected course of current diagnosis. Patient condition: Stable Discharge Plan Plan Patient Disposition: HOME (Self Care) Discharge Disposition comment: Stable Prescriptions/Referrals Prescriptions/Med Rec: No Action ondansetron 4 mg tablet,disintegrating 4 mg PO Q8H PRN (Reason: nausea and vomiting) Qty: 30 0RF metoclopramide HCl [Reglan] 5 mg tablet 5 mg PO BID PRN (Reason: nausea and vomiting) Qty: 14 0RF Referrals: Jeison Simon MD [Primary Care Provider, Family Practice] - In 1 week Problem List Clinical Impression: Weakness generalized Patient/Caregiver Discharge Instructions Discharge Activity: activity as tolerated Education Materials: ED Weakness (Uncertain Cause) Additional Instructions: Thank you for the opportunity for serving you today. You are stable for discharged . You are advised to: Follow-up with your PCP in 1 to 2 days Return to ED for worsening of symptoms Increase oral fluids Print Language: Albanian Stand Alone Forms: [facility] Award Info., Patient Portal Info Letter MARISABEL/SUKHDEV Supervising Physician RAMILA Supervising Physician: MD jaskaran
[2025-05-21 18:21] VITALS: BP 101/72; PULSE 79; RESP 17; TEMP 36.7; O2SAT 100
[2025-05-21 18:58] LABS: Basophils # (Auto) 0.0 Thou/mm3 (0.0-0.2); Basophils % (Auto) 0 % (0-2.5); Eosinophils # (Auto) 0.1 Thou/mm3 (0.0-0.5); Eosinophils % (Auto) 1 % (0-10); Hematocrit 33.8 % (36.0-46.0); Hemoglobin 11.5 g/dL (12.0-16.0); Immature Granulocytes Auto 0.05 Thou/mm3 (0.00-0.00); Lymphocytes # (Auto) 2.7 Thou/mm3 (1.0-4.8); Lymphocytes % (Auto) 20 % (10-50); Mean Corpuscular HGB Conc 34.0 g/dl (31.0-37.0); Mean Corpuscular Hemoglobin 29.6 pg (25.0-35.0); Mean Corpuscular Volume 87 fL (80-100); Monocytes # (Auto) 0.7 Thou/mm3 (0.0-0.8); Monocytes % (Auto) 5 % (0-12); Neutrophils # (Auto) 9.8 Thou/mm3 (1.8-7.7); Neutrophils % (Auto) 73 % (37-80); Nucleated Red Blood Cell # 0.00 Thou/mm3 (0.00-0.00); Nucleated Red Blood Cell % 0 /100 WBC (0); Platelet Count 413 Thou/mm3 (140-440); RDW Standard Deviation 40.7 fL (36.4-46.3); Red Blood Count 3.88 Miln/mm3 (4.00-5.20); White Blood Count 13.3 Thou/mm3 (3.6-11.0)
[2025-05-21 19:05] VITALS: BP 101/74; PULSE 77; RESP 18; TEMP 36.7; O2SAT 97
[2025-05-21 19:13] LABS: INR 1.0 (0.9-1.3); Prothrombin Time 10.6 Seconds (9.0-12.2)
[2025-05-21 19:29] LABS: Alanine Aminotransferase 8 U/L (10-49); Albumin, Serum 4.3 gm/dL (3.5-5.0); Albumin/Globulin Ratio 1.5 (1.2-2.2); Alkaline Phosphatase 78 U/L (46-116); Anion Gap 12 (7-16); Aspartate Amino Transferase 15 U/L (0-34); BUN/Creatinine Ratio 13 Ratio (12-20); Bilirubin,Total 0.2 mg/dL (0.3-1.2); Blood Urea Nitrogen 10 mg/dL (9-23); Calcium 9.1 mg/dL (8.3-10.6); Calcium (Corrected) 9.1 mg/dL (8.5-10.1); Carbon Dioxide 22.4 mMol/L (20.0-31.0); Chloride 107 mMol/L (98-107); Creatinine (Component) 0.8 mg/dL (0.6-1.3); Estimated Creatinine Clearance 82.6 mL/min (>60); Globulin 2.8 gm/dL (2.3-3.5); Glucose 118 mg/dL (74-106); Osmolality,Calculated 281 (275-295); Potassium 3.5 mMol/L (3.4-5.1); Sodium 141 mMol/L (136-145); Total Protein 7.1 gm/dL (5.7-8.2); Troponin I < 0.002 ng/mL (0.0-0.045); eGFR > 60 See Note
[2025-05-21 19:31] LABS: Collection Type, Urine Clean Catch
[2025-05-21 19:46] LABS: Bacteria,Urine Rare; Bilirubin,Urine Negative (Negative); Blood,Urine Negative (Negative); Clarity,Urine Clear (Clear/Hazy); Color,Urine Colorless (Lt Yel-Yel); Glucose, Urine Negative (Negative); Ketones,Urine Trace (Negative); Leukocyte Esterase,Urine Negative (Negative); Nitrite,Urine Negative (Negative); PH,Urine 7.0 (5.0-7.0); Protein,Urine Negative (Neg - Trace); RBC,Urine < 1 /hpf (0-3); Specific Gravity,Urine 1.009 (1.001-1.035); Squamous Epithelial Cell,Urine 5 /hpf (0-5); Urobilinogen,Urine Negative mg/dL (0.0-1.0); WBC,Urine 1 /hpf (0-5)
--- NOTE | 2025-05-21 20:13 | PC.NURSE ---
Patient is awake and alert, she came in to the ED via ambulance because she felt heart palpitations, fatigue and generalized weakness. Patient endorses that her symptoms have improved now but is concerns about the root of them. Provider to review all Radiology and laboratory test results and communicate with patient.
[2025-05-21 21:23] VITALS: BP 115/73; PULSE 84; RESP 18; TEMP 36.5; O2SAT 99
== END 2025-05-21 22:08 | disposition home or self-care (01) ==
PROVIDERS: Nurse Practitioner Family; Emergency Provider Emergency Medicine; PCP Family Medicine
DX: R53.1 Weakness (principal); R07.89 Other chest pain
CPT/HCPCS: 36415; 71045; 80053; 81001; 84484; 85025; 85610; 93005; 99283